=== PATIENT | female | born 1975 | race African-American/Black ===

== ENCOUNTER 2025-09-16 14:39 | Emergency (ER) | payer BC, OTHER ==
[~2025-09-16] VITALS: Ht 167.6 cm; Wt 69.0 kg
[2025-09-16 14:43] VITALS: O2SAT 100
[2025-09-16 17:56] LABS: BASOPHILS % 0.2 % (0.0-2.0); EOSINOPHILS % 4.2 % (0.0-5.0); HEMATOCRIT. 39.2 % (36.0-48.0); HEMOGLOBIN. 12.7 g/dL (12.0-16.0); LYMPHOCYTES % 45.9 % (20.0-50.0); MEAN PLATELET VOLUME 8.7 fl (7.4-10.4); MONOCYTES % 6.5 % (2.0-8.0); NEUTROPHILS % 43.2 % (40.0-76.0); PLATELET 272 x1000/uL (130-400); RED BLOOD CELL COUNT 4.23 mill/uL (4.2-5.4); RED CELL DISTRIBUTION WIDTH 14.3 % (11.6-14.6)
[2025-09-16 18:02] LABS: CREATININE 0.7 mg/dL (0.6-1.0); UREA NITROGEN BLOOD 6 mg/dL (9-23)
[2025-09-16 18:03] LABS: PROTEIN TOTAL 7.9 g/dL (6.0-8.3); TROPONIN I HIGH SENSITIVITY < 4 ng/L (3.0-34)
[2025-09-16 18:04] LABS: ASPARTATE AMINOTRANSFERASE 40 IU/L (<34); BILIRUBIN DIRECT 0.1 mg/dL (<=3.0); BILIRUBIN TOTAL 0.5 mg/dL (0.1-1.0)
[2025-09-16] MEDS: ACETAMINOPHEN 500MG TABLET PO ONE (18:13)
[2025-09-16] MEDS ORDERED: IBUP-1455 MT (19:15)
[2025-09-16] MEDS ORDERED: ACET-2708 MT (19:15)
[2025-09-16 19:41] VITALS: BP 154/95; PULSE 76; RESP 16; TEMP 36.9; O2SAT 100
== END 2025-09-16 19:46 | disposition home or self-care (01) ==
LOC: ER 14:39
DX: R53.1 Weakness (principal); Z79.899 Other long term (current) drug therapy; Z98.890 Other specified postprocedural states
CPT/HCPCS: 36415; 71045; 80048; 80076; 83880; 84484; 85025; 93005; 99285